=== PATIENT | female | born 1940 | race African-American/Black ===

== ENCOUNTER → 2024-07-04 09:57 | Outpatient (REF) | payer MEDICARE, OTHER, SELFPAY ==
[2024-07-04 12:33] LABS: Hematocrit 31.1 % (37.0-47.0); Hemoglobin 9.7 g/dL (12.0-16.0); Mean Corp Hgb Conc. 31.2 g/dL (33.0-37.0); Mean Corpuscular Hgb 27.3 pg (27.0-31.0); Mean Corpuscular Volume 87.6 fL (81.0-99.0); Platelet Count 172 10^3/uL (130-400); Red Blood Cell Count 3.55 10^6/uL (4.20-5.40); Red Cell Dist. Width 16.6 % (11.5-14.5); White Blood Cell Count 5.2 10^3/uL (4.8-10.8)
[2024-07-04 12:41] LABS: Blood Urea Nitrogen 11 mg/dl (7-17); Calcium 8.6 mg/dl (8.4-10.2); Carbon Dioxide 25 mmol/L (22-30); Chloride 108 mmol/L (98-107); Glucose 74 mg/dl (70-99); Potassium 4.4 mmol/L (3.5-5.1); Sodium 142 mmol/L (135-145); eGFR > 60.00
[2024-07-05 14:27] LABS: Glycohemoglobin (HgbA1c) 5.2 % (4.0-5.6)
== END ==
LOC: OLABN 09:57
PROVIDERS: ATTENDING PHYSICIAN Student in an Organized Health Care Education/Training Program
DX: I10 Essential (primary) hypertension (principal); E11.9 Type 2 diabetes mellitus without complications
CPT/HCPCS: 36415; 80048; 83036; 85027

== ENCOUNTER → 2024-07-13 12:37 | Outpatient (REF) | payer MEDICARE, OTHER, SELFPAY ==
[2024-07-13 16:31] LABS: Urine Albumin Negative (Neg - Trace); Urine Bilirubin Negative (Negative); Urine Character Clear (Clear); Urine Color Straw; Urine Glucose Negative (Negative); Urine Ketone Negative (Negative); Urine Leukocyte Negative (Negative); Urine Nitrite Negative (Negative); Urine Occult Blood Negative (Negative); Urine Specific Gravity 1.005 (<1.030); Urine Urobilinogen Negative (Neg - 1+)
== END ==
LOC: OLABN 12:37
PROVIDERS: ATTENDING PHYSICIAN Student in an Organized Health Care Education/Training Program
DX: R35.0 Frequency of micturition (principal)
CPT/HCPCS: 81003; 87086

== ENCOUNTER 2024-08-03 16:02 | Emergency (ER) | payer MEDICARE, OTHER, SELFPAY ==
[2024-08-03] VITALS (8 sets, daily range): BP systolic 103–138; BP diastolic 53–69; BMI 25.1
--- NOTE | 2024-08-03 16:28 | ED.GENMED ---
History of Present Illness
General
Chief Complaint: Heart Rate Problem
Source: patient
Exam Limitations: none
Time Seen by Provider: 08/03/24 16:07
Nursing documentation reviewed up to this point in time: agreed with
History of Present Illness
History of Present Illness:
Patient with history of CVA with left-sided deficit, presents to ED for evaluation after she complained of chest pain during scheduled outpatient physical therapy. Patient states that she often develops chest pain with exertion. When paramedics
arrived at scene, patient was found to be in SVT. Patient was given adenosine 6 mg with resolution SVT, as well as resolution of chest pain. At the time of evaluation ED, patient is without any complaints. Denies previous history of similar
symptoms. Denies dizziness or shortness of breath during the episode. Denies recent change in medications or diet. Patient does admit that she does not like to drink water during the day.
Review of Systems
Review of Systems
Allergies reviewed?: Yes
All Other Systems: ROS reviewed and negative except as documented in HPI and ROS
Constitutional: Reports no symptoms
Respiratory: Reports no symptoms
Cardiac: Reports chest pain; Denies palpitations or syncope
ABD/GI: Reports no symptoms
Musculoskeletal: Reports no symptoms
Skin: Reports no symptoms
Neurological: Reports no symptoms
Phy Exam
Physical Exam
Physical Exam:
Physical Exam
General: no apparent distress, not acutely ill. afebrile
Head: nc/at. eomi
Neck: supple. normal range of motion.
Heart: s1/s2 regular rate and rhythm, no murmur. equal radial pulses.
Lungs: no acute respiratory distress. clear bilaterally
Abdomen: normal bowel sounds. not tender.
Neuro: alert and oriented x 3.
Skin: no rash
Psychiatric: well kept. interactive and cooperative
Extremities: no edema. no calf tenderness.
Course
Orders/Labs/Results
Orders:
Orders
08/03/24 16:05
Electrocardiogram (*1) Urgent
Reason for Study: Tachycardia
EKG- Treatment ONCE
08/03/24 16:25
0.9% Sodium Chloride 500 ml [Nss] 500 ml IV BOLUS
08/03/24 16:32
Complete Blood Count/No Diff Urgent
Comprehensive Metabolic Panel Urgent
Magnesium Urgent
TSH Urgent
Troponin I Urgent
08/03/24 17:22
Add On- LAB Urgent
Tests Added?: TSH
Abnormal Lab Results
08/03/24
16:32
RBC 3.71 L 10^6/uL
(4.20-5.40)
Hgb 10.1 L g/dL
(12.0-16.0)
Hct 32.0 L %
(37.0-47.0)
MCHC 31.6 L g/dL
(33.0-37.0)
RDW 16.3 H %
(11.5-14.5)
MPV 11.6 H fL
(7.4-10.4)
Chloride 109 H mmol/L
(98-107)
Glucose 125 H mg/dl
(70-99)
Total Bilirubin 0.1 L mg/dl
(0.2-1.3)
Total Protein 5.9 L g/dl
(6.3-8.2)
Albumin 3.0 L g/dl
(3.5-5.0)
08/03/24 16:32
08/03/24 16:32
Vital Signs
Initial and Last Documented VS:
Initial Vital Signs
Pulse Resp
94 29
08/03/24 16:08 08/03/24 16:08
Last Documented Vital Signs
Temp Pulse Resp BP Pulse Ox
98.3 F 79 18 138/56 99
08/03/24 16:16 08/03/24 23:15 08/03/24 23:15 08/03/24 22:01 08/03/24 21:45
MDM/Problems Addressed
MDM/Problems Addressed:
Patient remains asymptomatic during extended course of observation ED. Patient given aggressive IV fluids, started by paramedics prehospital, for total 1 L. Patient was given sandwich during observation.
Patient with presumed SVT episode, now resolved. Patient will be discharged back to [facility] for continual care.
*EKG
EKG Intrepretation Date: 08/03/24
Heart Rate: 96
Rate: normal
Rhythm: sinus
[place]: left axis deviation
*Critical Care Note
Total Time (30-74mins, 75-104mins- exclusive of procedures): Not Applicable
ED Attending Note
-
Portions of this chart may have been created with voice recognition software.� Occasional wrong word or��sound alike� substitutions may have occurred due to the inherent limitations of voice recognition software.
Discharge Plan
Departure
Patient Disposition: Shelter/SNF
Date of Disposition: 08/03/24
Time of Disposition: 18:14
Patient with high blood pressure during this ER visit?: No
Discharge Problem:
SVT (supraventricular tachycardia)
Instructions: Supraventricular tachycardia (SVT)
Referrals:
Joe Cummings DO [Family Provider] -
Activity Restrictions/Additional Instructions:
As discussed, you are being discharged back to [facility] for continual care.
Interventions
Interventions:
*Risk Screen - Suicide Last Done: 08/03/24 16:16
*General Assessment Last Done: 08/03/24 16:16
*Neglect/Abuse Screening Last Done: 08/03/24 16:16
ED- Fall Risk Assessment Last Done: 08/03/24 16:59
*ED COVID-19 Vaccine History Last Done: 08/03/24 16:16
*Nursing Disposition Last Done: 01/03/25 23:29
ED- Cardiac Assessment Last Done: 08/03/24 16:59
ED- Pulmonary Assessment Last Done: 08/03/24 16:59
Discharge Date and Time
Discharge Date/Time: 08/03/24 23:31
Print Language: SAUDI ARABIAN
[2024-08-03 16:46] LABS: Hemoglobin 10.1 g/dL (12.0-16.0); Mean Corp Hgb Conc. 31.6 g/dL (33.0-37.0); Mean Corpuscular Hgb 27.2 pg (27.0-31.0); Mean Corpuscular Volume 86.3 fL (81.0-99.0); Mean Platelet Volume 11.6 fL (7.4-10.4); Platelet Count 179 10^3/uL (130-400); Red Blood Cell Count 3.71 10^6/uL (4.20-5.40); Red Cell Dist. Width 16.3 % (11.5-14.5); White Blood Cell Count 5.3 10^3/uL (4.8-10.8)
[2024-08-03 16:59] LABS: ALT (SGPT) 14 U/L (0-35); AST (SGOT) 20 U/L (14-36); Alkaline Phosphatase 92 U/L (38-126); Blood Urea Nitrogen 13 mg/dl (7-17); Calcium 8.5 mg/dl (8.4-10.2); Carbon Dioxide 22 mmol/L (22-30); Chloride 109 mmol/L (98-107); Estimated Creatinine Clearance 50 ml/min; Glucose 125 mg/dl (70-99); Magnesium 1.7 mg/dl (1.6-2.3); Potassium 4.2 mmol/L (3.5-5.1); Sodium 140 mmol/L (135-145); Total Bilirubin 0.1 mg/dl (0.2-1.3); Total Protein 5.9 g/dl (6.3-8.2); eGFR > 60.00
[2024-08-03 17:10] LABS: Troponin I < 0.012 ng/ml
[2024-08-03 18:47] LABS: TSH 1.15 uIU/ml (0.47-4.68)
== END 2024-08-03 23:31 ==
LOC: EMR 16:02
PROVIDERS: EMERGENCY PHYSICIAN Emergency Medicine; FAMILY PHYSICIAN Student in an Organized Health Care Education/Training Program
DX: I47.10 Supraventricular tachycardia, unspecified (principal)
CPT/HCPCS: 99284; 80053; 83735; 84443; 84484; 85027; 93005

== ENCOUNTER 2024-09-20 16:51 | Emergency (ER) | payer MEDICARE, OTHER, SELFPAY ==
[2024-09-20 16:56] VITALS: BP 101/69
[2024-09-20 17:33] LABS: Hematocrit 34.1 % (37.0-47.0); Hemoglobin 10.7 g/dL (12.0-16.0); Mean Corp Hgb Conc. 31.4 g/dL (33.0-37.0); Mean Corpuscular Hgb 27.4 pg (27.0-31.0); Mean Corpuscular Volume 87.2 fL (81.0-99.0); Mean Platelet Volume 11.8 fL (7.4-10.4); Platelet Count 225 10^3/uL (130-400); Red Blood Cell Count 3.91 10^6/uL (4.20-5.40); Red Cell Dist. Width 15.9 % (11.5-14.5); White Blood Cell Count 5.4 10^3/uL (4.8-10.8)
[2024-09-20 18:03] LABS: ALT (SGPT) 14 U/L (0-35); AST (SGOT) 24 U/L (14-36); Alkaline Phosphatase 116 U/L (38-126); Blood Urea Nitrogen 15 mg/dl (7-17); Calcium 9.2 mg/dl (8.4-10.2); Carbon Dioxide 25 mmol/L (22-30); Chloride 103 mmol/L (98-107); Glucose 105 mg/dl (70-99); Potassium 4.1 mmol/L (3.5-5.1); Sodium 139 mmol/L (135-145); Total Bilirubin 0.5 mg/dl (0.2-1.3); Total Protein 7.3 g/dl (6.3-8.2); eGFR > 60.00
[2024-09-20 18:09] LABS: % Basophils 0.9 % (0-2); % Eosinophils 1.7 % (0-6); % Immature Granulocytes 1.3 % (0-0.5); % Lymphocytes 39.9 % (20.5-51.1); % Monocytes 6.4 % (1.7-9.3); % Neutrophils 49.8 % (42.2-75.2); Absolute Basophils 0.1 10^3/uL (0-0.2); Absolute Eosinophils 0.1 10^3/uL (0-0.7); Absolute Immature Granulocytes 0.1 10^3/uL (0-0.05); Absolute Lymphocytes 2.2 10^3/uL (1.2-3.4); Absolute Monocytes 0.4 10^3/uL (0.1-0.6); Absolute Neutrophils 2.7 10^3/uL (1.4-6.5); Nucleated Red Blood Cells % 0 %
[2024-09-20 18:30] LABS: TSH Reflex To Free T4 1.52 uIU/ml (0.47-4.68)
[2024-09-20 18:35] VITALS: BMI 24.8
--- NOTE | 2024-09-20 19:08 | ED.GENMED ---
History of Present Illness
General
Chief Complaint: Heart Rate Problem
Time Seen by Provider: 09/20/24 18:16
History of Present Illness
History of Present Illness:
84-year-old female with history of stroke and resultant aphasia and confusion presents to the emergency department for evaluation of SVT. She was in this emergency department last month for SVT, broke spontaneously. She followed up with cardiology
today and was noted to be in a recurrent SVT while in the office and sent the emergency department. At this time patient denies any complaints, difficult to obtain history secondary to her severe aphasia.
Review of Systems
Review of Systems
Allergies reviewed?: Yes
All Other Systems: ROS reviewed and negative except as documented in HPI and ROS
Phy Exam
Physical Exam
Physical Exam:
GEN: Well appearing, NAD, WDWN
HEENT: Oral mucosa moist, no scleral icterus
Cardiac: Regular rate and rhythm, no murmurs
Lung: No respiratory distress, no tachypnea
MSK: No gross deformity or injuries
Skin: Good color, no pallor or jaundice, no rashes
Neuro: AO x3, moves all extremities freely
Psych: Calm, cooperative
Course
Orders/Labs/Results
Orders:
Orders
09/20/24 16:53
Electrocardiogram (*1) Urgent
Reason for Study: Tachycardia
EKG- Treatment ONCE
09/20/24 17:20
Complete Blood Count/With Diff Urgent
Comprehensive Metabolic Panel Urgent
TSH Reflex To Free T4 Urgent
Abnormal Lab Results
09/20/24
17:20
RBC 3.91 L 10^6/uL
(4.20-5.40)
Hgb 10.7 L g/dL
(12.0-16.0)
Hct 34.1 L %
(37.0-47.0)
MCHC 31.4 L g/dL
(33.0-37.0)
RDW 15.9 H %
(11.5-14.5)
MPV 11.8 H fL
(7.4-10.4)
Abs Immat Gran (auto) 0.1 H 10^3/uL
(0-0.05)
Immature Gran % 1.3 H %
(0-0.5)
Glucose 105 H mg/dl
(70-99)
09/20/24 17:20
09/20/24 17:20
Vital Signs
Initial and Last Documented VS:
Initial Vital Signs
Temp Pulse Resp BP Pulse Ox
98.5 F 98 18 101/69 100
09/20/24 16:56 09/20/24 16:56 09/20/24 16:56 09/20/24 16:56 09/20/24 16:56
Last Documented Vital Signs
Temp Pulse Resp BP Pulse Ox
98.5 F 65 18 101/69 100
09/20/24 16:56 09/20/24 18:38 09/20/24 16:56 09/20/24 16:56 09/20/24 16:56
MDM/Problems Addressed
MDM/Problems Addressed:
Patient remained in normal sinus rhythm here. Will uptitrate her beta-bhanu and have her follow-up as an outpatient with cardiology
*Critical Care Note
Total Time (30-74mins, 75-104mins- exclusive of procedures): Not Applicable
ED Attending Note
-
Portions of this chart may have been created with voice recognition software.� Occasional wrong word or��sound alike� substitutions may have occurred due to the inherent limitations of voice recognition software.
Discharge Plan
Departure
Patient Disposition: Home (Routine Discharge)
Date of Disposition: 09/20/24
Time of Disposition: 19:08
Patient with high blood pressure during this ER visit?: No
Discharge Problem:
Paroxysmal supraventricular tachycardia
Instructions: Supraventricular tachycardia (SVT)
Prescriptions:
New
carvedilol [Coreg] 6.25 mg tablet
6.25 mg PO BID Qty: 60 0RF
Activity Restrictions/Additional Instructions:
Patient's carvedilol will be increased from 3.125mg to 6.25mg
Follow up with cardiology in 1 month
Interventions
Interventions:
*Risk Screen - Suicide Last Done: 09/20/24 16:56
*General Assessment Last Done: 09/20/24 16:56
*Neglect/Abuse Screening Last Done: 09/20/24 16:56
ED- Fall Risk Assessment Last Done: 09/20/24 18:36
*ED COVID-19 Vaccine History Last Done: 09/20/24 16:56
*Nursing Disposition Last Done: 09/20/24 19:43
ED- Cardiac Assessment Last Done: 09/20/24 18:36
ED- Pulmonary Assessment Last Done: 09/20/24 18:36
Discharge Date and Time
Discharge Date/Time: 09/20/24 19:43
Print Language: SWAZI
== END 2024-09-20 19:43 | disposition home or self-care (01) ==
LOC: EMR 16:51
PROVIDERS: Emergency Medicine; EMERGENCY PHYSICIAN Student in an Organized Health Care Education/Training Program; FAMILY PHYSICIAN Student in an Organized Health Care Education/Training Program
DX: I47.19 Other supraventricular tachycardia (principal); I69.320 Aphasia following cerebral infarction
CPT/HCPCS: 99284; 80053; 84443; 85025; 93005

== ENCOUNTER → 2024-11-06 10:15 | Outpatient (REF) | payer MEDICARE, OTHER, SELFPAY ==
[2024-11-06 10:47] LABS: Hematocrit 26.1 % (37.0-47.0); Hemoglobin 8.5 g/dL (12.0-16.0); Mean Corp Hgb Conc. 32.6 g/dL (33.0-37.0); Mean Corpuscular Hgb 26.9 pg (27.0-31.0); Mean Corpuscular Volume 82.6 fL (81.0-99.0); Mean Platelet Volume 12.1 fL (7.4-10.4); Platelet Count 179 10^3/uL (130-400); Red Blood Cell Count 3.16 10^6/uL (4.20-5.40); Red Cell Dist. Width 16.2 % (11.5-14.5); White Blood Cell Count 4.6 10^3/uL (4.8-10.8)
[2024-11-06 11:00] LABS: Blood Urea Nitrogen 12 mg/dl (7-17); Calcium 8.8 mg/dl (8.4-10.2); Carbon Dioxide 26 mmol/L (22-30); Chloride 112 mmol/L (98-107); Glucose 75 mg/dl (70-99); HDL Cholesterol 88 mg/dl; Potassium 4.1 mmol/L (3.5-5.1); Sodium 143 mmol/L (135-145); Total Cholesterol 141 mg/dl (50-199); eGFR > 60.00
[2024-11-06 11:11] LABS: Vitamin D, 25-OH*** 41.3 ng/mL (30-80)
[2024-11-06 11:19] LABS: LDL Cholesterol, Calculated 47.00001 mg/dl; Triglyceride < 30 mg/dl (10-149); Very Low Density Lipoprotein 5.99999 mg/dl (0-30)
[2024-11-06 11:24] LABS: TSH 1.15 uIU/ml (0.47-4.68)
== END ==
LOC: OLABN 10:15
PROVIDERS: ATTENDING PHYSICIAN Student in an Organized Health Care Education/Training Program
DX: I10 Essential (primary) hypertension (principal); E78.5 Hyperlipidemia, unspecified; E55.9 Vitamin D deficiency, unspecified
CPT/HCPCS: 36415; 80048; 80061; 82306; 84443; 85027

== ENCOUNTER → 2024-11-12 10:40 | Outpatient (REF) | payer MEDICARE, OTHER, SELFPAY ==
[2024-11-12 12:03] LABS: Glycohemoglobin (HgbA1c) 5.2 % (4.0-5.6)
== END ==
LOC: OLABN 10:40
PROVIDERS: ATTENDING PHYSICIAN Student in an Organized Health Care Education/Training Program
DX: E11.9 Type 2 diabetes mellitus without complications (principal)
CPT/HCPCS: 36415; 83036

== ENCOUNTER → 2025-02-11 10:26 | Outpatient (REF) | payer MEDICARE, OTHER, SELFPAY ==
[2025-02-11 12:26] LABS: Glycohemoglobin (HgbA1c) 5.2 % (4.0-5.6)
== END ==
LOC: OLABN 10:26
PROVIDERS: ATTENDING PHYSICIAN Student in an Organized Health Care Education/Training Program
DX: E11.9 Type 2 diabetes mellitus without complications (principal)
CPT/HCPCS: 36415; 83036

== ENCOUNTER → 2025-02-14 05:00 | Outpatient (REF) | payer MEDICARE, OTHER, SELFPAY ==
[2025-02-14 11:37] LABS: Hematocrit 27.6 % (37.0-47.0); Hemoglobin 8.7 g/dL (12.0-16.0); Mean Corp Hgb Conc. 31.5 g/dL (33.0-37.0); Mean Corpuscular Volume 82.1 fL (81.0-99.0); Nucleated Red Blood Cells % 0 %; Platelet Count 153 10^3/uL (130-400); Red Cell Dist. Width 17.0 % (11.5-14.5)
[2025-02-14 12:37] LABS: ALT (SGPT) 11 U/L (0-35); AST (SGOT) 18 U/L (14-36); Albumin 3.3 g/dl (3.5-5.0); Alkaline Phosphatase 84 U/L (38-126); Blood Urea Nitrogen 14 mg/dl (7-17); Calcium 8.9 mg/dl (8.4-10.2); Carbon Dioxide 24 mmol/L (22-30); Chloride 112 mmol/L (98-107); Glucose 83 mg/dl (70-99); Potassium 4.2 mmol/L (3.5-5.1); Sodium 138 mmol/L (135-145); Total Protein 6.5 g/dl (6.3-8.2); eGFR > 60.00
[2025-02-14 14:21] LABS: Urine Character Slightly Cloudy (Clear)
== END ==
LOC: OLABN 05:00
PROVIDERS: ATTENDING PHYSICIAN Student in an Organized Health Care Education/Training Program
DX: R41.0 Disorientation, unspecified (principal); R82.90 Unspecified abnormal findings in urine
CPT/HCPCS: 36415; 80053; 81003; 85025; 87077; 87086

== ENCOUNTER 2025-05-07 08:57 | Emergency (ER) | payer MEDICARE, OTHER, SELFPAY ==
[2025-05-07 09:00] VITALS: BP 172/71
[2025-05-07 09:09] VITALS: BP 172/71
--- NOTE | 2025-05-07 09:19 | ED.GENMED ---
History of Present Illness
General
Chief Complaint: Unresponsive
Time Seen by Provider: 05/07/25 09:03
History of Present Illness
History of Present Illness:
85-year-old female with history of prior CVA with chronic left-sided weakness, underlying psychiatric disease, and dementia presenting to the emergency department for episode of unresponsiveness. Patient arrives from nursing facility where she was
noted to be unresponsive for about 20 minutes. On arrival, patient is awake, alert, talking. Per medics, patient was unresponsive prior to arrival, however her vital signs were reportedly normal with the exception of hypertension. They note that
when they tried to open her eyes, she did resist. Patient herself reports no recollection of preceding episode. She presently denies chest pain, difficulty breathing, fever or recent illness, abdominal pain. No report of any recent fall or
trauma. She denies additional acute medical complaints
Phy Exam
Physical Exam
Physical Exam:
General: Well-appearing, no clinical signs of dehydration, nontoxic and in no acute distress
HEENT: protecting airway, pupils equal and reactive
Neck: appears supple
CV: Normal heart rate, regular rhythm
Resp: No accessory muscle use, no increased work of breathing, lungs clear to auscultation bilaterally
Abd: Soft and non-distended, no tenderness to palpation
Extremities: No deformities, no swelling
Neuro: alert, disoriented to time, mild weakness to the left lower extremity comparison to the right, reportedly chronic
: deferred
Rectal: deferred
Psych: Normal affect
Skin: Intact
Course
Orders/Labs/Results
Orders:
Orders
05/07/25 09:03
Electrocardiogram (*1) Urgent
Reason for Study: Fatigue / Weakness
EKG- Treatment ONCE
05/07/25 09:11
Complete Blood Count/With Diff Urgent
Comprehensive Metabolic Panel Urgent
05/07/25 09:18
CT Head W/o Iv Contrast Urgent
Comment:
Reason For Exam: unresponsive episode
05/07/25 09:35
Troponin I Urgent
05/07/25 10:00
Urinalysis Reflex To Culture Urgent
Date Specimen was Collected: 05/07/25
Time Specimen was Collected: 09:59
Abnormal Lab Results
05/07/25
09:11
RBC 3.82 L 10^6/uL
(4.20-5.40)
Hgb 9.8 L g/dL
(12.0-16.0)
Hct 31.3 L %
(37.0-47.0)
MCH 25.7 L pg
(27.0-31.0)
MCHC 31.3 L g/dL
(33.0-37.0)
RDW 16.9 H %
(11.5-14.5)
MPV 11.3 H fL
(7.4-10.4)
Chloride 111 H mmol/L
(98-107)
05/07/25 09:11
05/07/25 09:11
Vital Signs
Initial and Last Documented VS:
Initial Vital Signs
Temp Pulse Resp BP Pulse Ox
97.8 F 65 16 172/71 92
05/07/25 09:00 05/07/25 09:00 05/07/25 09:00 05/07/25 09:00 05/07/25 09:00
Last Documented Vital Signs
Temp Pulse Resp BP Pulse Ox
97.8 F 65 16 172/71 92
05/07/25 09:00 05/07/25 09:00 05/07/25 09:00 05/07/25 09:00 05/07/25 09:20
MDM/Problems Addressed
MDM/Problems Addressed:
85-year-old female with history of dementia, underlying psychiatric disease, and CVA with left-sided weakness presenting for episode of unresponsiveness prior to arrival. Vital signs on arrival significant for high blood pressure.
On exam, patient resting comfortably, no acute distress or discomfort. No present acute medical complaints. She denies any chest pain, difficulty breathing, abdominal pain. She denies dizziness or lightheadedness. She denies any new weakness.
Unclear preceding episode. Medics note that her vitals were stable during the incident, and patient was resisting when they were trying to open her eyes, so possible behavioral component. EKG obtained, which does show some T wave inversions
inferior and laterally which appear to be new. Will screen with laboratory analysis. Given prior history of stroke, will obtain CT brain imaging. No report of any body shaking, with lower suspicion for seizure. Will obtain urinalysis. Will
continue to closely monitor
11:00- Patient's labs are unremarkable. Urine without any sign of infection. CT obtained, does show low-attenuation area, however suspected to be an old infarct with encephalomalacia. This is consistent with known prior history of CVA. Without
present concern for acute infarct. On reassessment, patient remains asymptomatic. Family at bedside notes that she is at her baseline. Again unclear episode of preceding decreased responsiveness, however ultimately feel stable for discharge back
to nursing facility.
*Pulse Oximetry
SaO2: 92
Oxygen Mode of Delivery: Room air
Patient hypoxic: no
*EKG
Interpreted by ED Provider?: Yes
EKG Intrepretation Date: 05/07/25
EKG Intrepretation Time: 09:24
Interpretation: abnormal
Comparison EKG: changes noted
Heart Rate: 61
Rate: normal
Rhythm: sinus
[place]: normal axis
Interval: normal interval
QRS Pattern: right bundle branch block
Ischemia: T-wave inversion
*Critical Care Note
Total Time (30-74mins, 75-104mins- exclusive of procedures): Not Applicable
ED Attending Note
-
Portions of this chart may have been created with voice recognition software.� Occasional wrong word or��sound alike� substitutions may have occurred due to the inherent limitations of voice recognition software.
Discharge Plan
Departure
Prescriptions:
No Action
carvedilol [Coreg] 6.25 mg tablet
6.25 mg PO BID Qty: 60 0RF
amantadine HCl 50 mg/5 mL Solution
100 mg PO DAILY
atorvastatin [Lipitor] 40 mg Tablet
40 mg PO HS
metformin 500 mg Tablet
250 mg PO DAILY
acetaminophen [Tylenol] 325 mg Tablet
650 mg PO Q4HPRN PRN (Reason: mild pain)
lidocaine 4 % Cream
1 applic TOPICAL BID
melatonin 3 mg Tablet
6 mg PO HS
melatonin 3 mg Tablet
3 mg PO DAILY@1500
clopidogrel [Plavix] 75 mg Tablet
75 mg PO DAILY
aspirin 81 mg Tablet,Delayed Release (Dr/Ec)
81 mg PO DAILY
magnesium hydroxide [Milk of Magnesia] 400 mg/5 mL Suspension
2,400 mg PO HSPRN PRN (Reason: constipation)
bisacodyl [Dulcolax (bisacodyl)] 10 mg Suppository
10 mg VT [id number] PRN (Reason: if no bm aftr mom)
losartan 25 mg Tablet
25 mg PO DAILY
Debrox 6.5 % Drops
2 drp OTIC (EAR) TUFR
Refresh Optive 0.5-0.9 % Drops
1 drp BOTH EYES BID
baclofen 5 mg Tablet
5 mg PO TID
Referrals:
Joe Cummings DO [Family Provider, Family Practice]
Interventions
Interventions:
*Risk Screen - Suicide Last Done: 05/07/25 09:00
*General Assessment Last Done: 05/07/25 09:00
*Neglect/Abuse Screening Last Done: 05/07/25 09:00
*ED- Fall Risk Assessment Last Done: 05/07/25 09:00
*ED COVID-19 Vaccine History Last Done: 05/07/25 09:00
*ED Influenza Vaccine History Last Done: 05/07/25 09:00
ED- Neurological Assessment Last Done: 05/07/25 09:19
Discharge Date and Time
Print Language: EMIRATI
[2025-05-07 09:42] LABS: ALT (SGPT) 18 U/L (0-35); AST (SGOT) 22 U/L (14-36); Albumin 3.6 g/dl (3.5-5.0); Alkaline Phosphatase 101 U/L (38-126); Blood Urea Nitrogen 11 mg/dl (7-17); Calcium 8.7 mg/dl (8.4-10.2); Carbon Dioxide 26 mmol/L (22-30); Chloride 111 mmol/L (98-107); Glucose 90 mg/dl (70-99); Hematocrit 31.3 % (37.0-47.0); Hemoglobin 9.8 g/dL (12.0-16.0); Mean Corp Hgb Conc. 31.3 g/dL (33.0-37.0); Mean Corpuscular Volume 81.9 fL (81.0-99.0); Nucleated Red Blood Cells % 0 %; Platelet Count 165 10^3/uL (130-400); Potassium 4.1 mmol/L (3.5-5.1); Red Cell Dist. Width 16.9 % (11.5-14.5); Sodium 141 mmol/L (135-145); Total Protein 7.0 g/dl (6.3-8.2); eGFR > 60.00
[2025-05-07 10:08] LABS: Troponin I < 0.012 ng/ml
[2025-05-07 10:34] LABS: Urine Character Clear (Clear)
== END 2025-05-07 11:48 | disposition home or self-care (01) ==
LOC: EMR 08:57
PROVIDERS: Emergency Medicine; EMERGENCY PHYSICIAN Student in an Organized Health Care Education/Training Program; FAMILY PHYSICIAN Student in an Organized Health Care Education/Training Program
DX: R40.4 Transient alteration of awareness (principal); I69.354 Hemiplegia and hemiparesis following cerebral infarction affecting left non-dominant side; F03.90 Unspecified dementia, unspecified severity, without behavioral disturbance, psychotic disturbance, mood disturbance, and anxiety; I10 Essential (primary) hypertension; I45.10 Unspecified right bundle-branch block
CPT/HCPCS: 99284; 70450; 80053; 81003; 84484; 85025; 93005

== ENCOUNTER → 2025-05-11 07:16 | Outpatient (REF) | payer MEDICARE, OTHER, SELFPAY ==
[2025-05-11 10:16] LABS: Urine Character Clear (Clear)
[2025-05-11 10:22] LABS: Hematocrit 26.3 % (37.0-47.0); Hemoglobin 8.3 g/dL (12.0-16.0); Mean Corp Hgb Conc. 31.6 g/dL (33.0-37.0); Mean Corpuscular Volume 82.2 fL (81.0-99.0); Nucleated Red Blood Cells % 1.1 %; Platelet Count 140 10^3/uL (130-400); Red Cell Dist. Width 16.9 % (11.5-14.5)
[2025-05-11 10:24] LABS: ALT (SGPT) 13 U/L (0-35); AST (SGOT) 18 U/L (14-36); Albumin 3.0 g/dl (3.5-5.0); Alkaline Phosphatase 79 U/L (38-126); Blood Urea Nitrogen 15 mg/dl (7-17); Calcium 8.4 mg/dl (8.4-10.2); Carbon Dioxide 27 mmol/L (22-30); Chloride 115 mmol/L (98-107); Glucose 87 mg/dl (70-99); Magnesium 1.9 mg/dl (1.6-2.3); Potassium 4.3 mmol/L (3.5-5.1); Sodium 149 mmol/L (135-145); Total Protein 6.1 g/dl (6.3-8.2); eGFR > 60.00
[2025-05-11 10:27] LABS: Urine Squamous Cell >30 /LPF (Few)
[2025-05-11 10:28] LABS: Urine Red Blood Cell 0-2 /HPF (0-2); Urine White Cell 0-2 /HPF (0-5)
[2025-05-11 12:47] LABS: Glycohemoglobin (HgbA1c) 5.8 % (4.0-5.6)
== END ==
LOC: OLABN 07:16
PROVIDERS: ATTENDING PHYSICIAN Student in an Organized Health Care Education/Training Program
DX: E11.9 Type 2 diabetes mellitus without complications (principal); I10 Essential (primary) hypertension; R41.0 Disorientation, unspecified; R35.0 Frequency of micturition
CPT/HCPCS: 36415; 80053; 81003; 81015; 83036; 83735; 85025; 87086

== ENCOUNTER → 2025-05-14 10:17 | Outpatient (REF) | payer MEDICARE, OTHER, SELFPAY | LOC: OLABN 10:17 | PROVIDERS: ATTENDING PHYSICIAN Student in an Organized Health Care Education/Training Program | DX: I10 Essential (primary) hypertension (principal) | CPT/HCPCS: 36415 ==

== ENCOUNTER → 2025-05-15 13:24 | Outpatient (REF) | payer MEDICARE, OTHER, SELFPAY ==
[2025-05-15 14:30] LABS: Blood Urea Nitrogen 13 mg/dl (7-17); Calcium 8.7 mg/dl (8.4-10.2); Carbon Dioxide 26 mmol/L (22-30); Chloride 109 mmol/L (98-107); Glucose 92 mg/dl (70-99); Potassium 4.2 mmol/L (3.5-5.1); Sodium 139 mmol/L (135-145); eGFR > 60.00
== END ==
LOC: OLABN 13:24
PROVIDERS: ATTENDING PHYSICIAN Student in an Organized Health Care Education/Training Program
DX: I10 Essential (primary) hypertension (principal)
CPT/HCPCS: 36415; 80048

== ENCOUNTER → 2025-05-21 10:46 | Outpatient (REF) | payer MEDICARE, OTHER, SELFPAY ==
[2025-05-21 11:41] LABS: Blood Urea Nitrogen 10 mg/dl (7-17); Calcium 8.3 mg/dl (8.4-10.2); Carbon Dioxide 27 mmol/L (22-30); Chloride 111 mmol/L (98-107); Glucose 81 mg/dl (70-99); Potassium 4.1 mmol/L (3.5-5.1); Sodium 141 mmol/L (135-145); eGFR > 60.00
== END ==
LOC: OLABN 10:46
PROVIDERS: ATTENDING PHYSICIAN Student in an Organized Health Care Education/Training Program
DX: I10 Essential (primary) hypertension (principal)
CPT/HCPCS: 36415; 80048